=== PATIENT | female | born 1950 | race Caucasian/White ===

== ENCOUNTER → 2016-10-27 | Outpatient (CLI) | payer MEDICARE, OTHER ==
[2016-05-07 15:16] VITALS: BP 102/69
[~2016-10-27] MED LIST: ASPI-630 PO; ATORVASTATIN CA80 MG PO; FAMO-63 PO; FURO-69 PO; FURO40TA4 PO; LEVO500T59 PO; LEVO50TA5 PO; LISI-338 PO; LOSA25TA4 PO; METH4TAB2 PO; METO25TA4 PO; POTA10CA PO; POTA20TA4 PO; [UNRECOGNIZED DRUG - OTHER]
--- NOTE | 2016-10-27 10:01 | RAD ---
DATE: 10/27/16 EXAM: MAMMO JAVAD SCREENING BILATERAL HISTORY: Routine screening COMPARISON: 10/28/15 This study was interpreted with the benefit of Computerized Aided Detection (CAD). TECHNIQUE: Routine 2-D and 3-D screening mammograms of both breasts are obtained. FINDINGS: Breast Density: FATTY The breast parenchyma is primarily fatty replaced. Breast parenchyma level density A.. No suspicious clustered microcalcifications or architectural distortion seen. Stable benign-appearing calcifications are seen in both breasts. Skin and nipples are intact IMPRESSION: Benign findings BI-RADS CATEGORY: 2 BENIGN FINDING(S) RECOMMENDED FOLLOW-UP: 12M 12 MONTH FOLLOW-UP PQRS compliance statement: Patient information was entered into a reminder system with a target due date for the next mammogram. Mammography is a sensitive method for finding small breast cancers, but it does not detect them all and is not a substitute for careful clinical examination. A negative mammogram does not negate a clinically suspicious finding and should not result in delay in biopsying a clinically suspicious abnormality. "Our facility is accredited by the [employer] Mammography Program."
== END | disposition home or self-care (01) ==
LOC: MAMMO 08:33
PROVIDERS: ATTEND Family Medicine
DX: Z12.31 Encounter for screening mammogram for malignant neoplasm of breast (principal)
CPT/HCPCS: 77063; G0202; 77067

== ENCOUNTER → 2016-12-11 | Outpatient (CLI) | payer MEDICARE, OTHER ==
[2016-05-07 15:16] VITALS: BP 102/69
[2016-12-11 09:48] LABS: ALBUMIN 3.3 g/dL (3.4-5.0); ALBUMIN/GLOBULIN RATIO 0.8 (1.0-1.7); CALCIUM 9.1 mg/dL (8.5-10.1); CREATININE 0.8 mg/dL (0.6-1.0); GFR 71.8; POTASSIUM 4.5 mmol/L (3.5-5.1); TOTAL BILIRUBIN 0.4 mg/dL (0.2-1.0); TOTAL PROTEIN 7.3 g/dL (6.4-8.2)
== END | disposition home or self-care (01) ==
LOC: LAB 08:44
PROVIDERS: ATTEND Nurse Practitioner
DX: E78.5 Hyperlipidemia, unspecified (principal)
CPT/HCPCS: 36415; 80053; 80061

== ENCOUNTER → 2017-01-20 | Outpatient (CLI) | payer MEDICARE, OTHER ==
[2016-05-07 15:16] VITALS: BP 102/69
[2017-01-20 14:12] LABS: BASO % 1 % (0-3); EOS # 0.1 x10^3/uL (0.0-0.7); EOS % 1 % (0-3); HEMATOCRIT 35.2 % (36.0-47.0); HEMOGLOBIN 11.4 g/dL (12.0-15.5); LYMPH # 1.3 x10^3/uL (1.0-4.8); LYMPH % 22 % (24-48); MEAN CORPUSCULAR HEMOGLOBIN 26 pg (25-35); MEAN CORPUSCULAR HGB CONC 32 g/dL (31-37); MEAN CORPUSCULAR VOLUME 80 fL (79-100); MONO # 0.6 x10^3/uL (0.0-1.1); MONO % 10 % (0-9); NEUT # 3.9 x10^3uL (1.8-7.7); NEUT % 66 % (31-73); PLATELET COUNT 268 x10^3/uL (140-400); RED BLOOD COUNT 4.42 x10^6/uL (3.50-5.40); RED CELL DISTRIBUTION WIDTH 17.3 % (11.5-14.5); WHITE BLOOD COUNT 5.8 x10^3/uL (4.0-11.0)
[2017-01-20 14:14] LABS: CALCIUM 9.2 mg/dL (8.5-10.1); CREATININE 0.9 mg/dL (0.6-1.0); GFR 62.6; POTASSIUM 3.9 mmol/L (3.5-5.1)
== END | disposition home or self-care (01) ==
LOC: LAB 13:39
PROVIDERS: ATTEND Nurse Practitioner
DX: Z01.812 Encounter for preprocedural laboratory examination (principal); I34.0 Nonrheumatic mitral (valve) insufficiency
CPT/HCPCS: 36415; 80048; 83735; 85027; 85610; 85730

== ENCOUNTER 2017-07-17 17:15 | Emergency (ER) | payer MEDICARE, OTHER ==
[~2017-07-17] VITALS: Ht 154.9 cm; Wt 84.4 kg
[2017-07-17 17:25] VITALS: BP 139/80
--- NOTE | 2017-07-17 17:38 | ED.ADGEN ---
Past History Past Medical History: Hypertension, Hyperthyroid Past Surgical History: Hysterectomy, Other Alcohol Use: None Drug Use: None Adult General Chief Complaint Chief Complaint " I just woke up with this purple bruise and tendon cyst on my Rt. hand... it is sore.. my mother used to get them.. and had to have surgery.." HPI HPI Patient is a 66 year old female who presents with above hx and complaints right hand muscles and endocrine systems. Distal neurovascular intact. No history of trauma. Patient does take Coumadin for her mechanical valve. Goal for previous INRs have been between 2.5 and 3. Review of Systems Review of Systems Constitutional: Denies fever or chills [] Eyes: Denies change in visual acuity, redness, or eye pain [] HENT: Denies nasal congestion or sore throat [] Respiratory: Denies cough or shortness of breath [] Cardiovascular: No additional information not addressed in HPI [] GI: Denies abdominal pain, nausea, vomiting, bloody stools or diarrhea [] : Denies dysuria or hematuria [] Musculoskeletal: Denies back pain or joint pain []complaints are right hand ecchymosis and pain Integument: Denies rash or skin lesions [] Neurologic: Denies headache, focal weakness or sensory changes [] Endocrine: Denies polyuria or polydipsia [] All other systems were reviewed and found to be within normal limits, except as documented in this note. Family History Family History Noncontributory- mother had hx of ganglion tendon cysts. Current Medications Current Medications See nursing for home meds Allergies Allergies Allergies Coded Allergies Type Severity Reaction Last Updated Verified fish oil Allergy Intermediate 05/06/16 Yes lisinopril Allergy Intermediate 05/06/16 Yes pravastatin Allergy Intermediate 05/06/16 Yes Physical Exam Physical Exam Constitutional: Well developed, well nourished, no acute distress, non-toxic appearance. [] HENT: Normocephalic, atraumatic, bilateral external ears normal, oropharynx moist, no oral exudates, nose normal. [] Eyes: PERRLA, EOMI, conjunctiva normal, no discharge. [] Neck: Normal range of motion, no tenderness, supple, no stridor. [] Cardiovascular:Heart rate regular rhythm, click Lungs & Thorax: Bilateral breath sounds clear to auscultation []midline scar. Abdomen: Bowel sounds normal, soft, no tenderness, no masses, no pulsatile masses. Scar Skin: Warm, dry, no erythema, no rash. [] Back: No tenderness, no CVA tenderness. [] Extremities: No tenderness, no cyanosis, no clubbing, ROM intact, no edema. [] Right hand edema and ecchymosis. Findings of a ganglion cyst dorsal. Neurologic: Alert and oriented X 3, normal motor function, normal sensory function, no focal deficits noted. [] Psychologic: Affect normal, judgement normal, mood normal. [] Current Patient Data Vital Signs Vital Signs Date Time Temp Pulse Resp B/P (MAP) Pulse Ox O2 Delivery O2 Flow Rate FiO2 07/17/17 17:25 98.0 86 16 95 Room Air Lab Results Laboratory Tests Test 07/17/17 17:35 Prothrombin Time 35.7 SEC (9.4-11.4) H Prothrombin Time INR 3.6 (0.9-1.1) H PTT 39 SEC (23-33) H EKG EKG [] Radiology/Procedures Radiology/Procedures [] Course & Med Decision Making Course & Med Decision Making Pertinent Labs and Imaging studies reviewed. (See chart for details) Patient to hold Coumadin tonight. Take half a dose tomorrow. Recheck INR Wednesday. Ice, elevation, rest, consider follow-up for gaining removal. [] Final Impression Final Impression 1. Ecchymosis- 2. Tendon Cyst[]-Ganglion 3. Elevated INR Problems: Dragon Disclaimer Dragon Disclaimer This electronic medical record was generated, in whole or in part, using a voice recognition dictation system. LUCIANO ZHENG MD Jul 17, 2017 17:38
--- NOTE | 2017-07-18 09:09 | RAD ---
Indication: Bruising, no known injury. Technique: 3 views of the right hand are submitted for review. No comparison is available. Findings: No fracture or dislocation is apparent. There is joint space narrowing and spurring noted in the interphalangeal joints and first carpometacarpal joint. There is also degenerative change at the first metacarpal phalangeal joint. There is no subluxation. There is no soft tissue swelling. Impression: Degenerative changes in the right hand.
== END 2017-07-17 19:15 | disposition home or self-care (01) ==
LOC: ER 17:15
DX: S60.221A Contusion of right hand, initial encounter (principal); M67.441 Ganglion, right hand; R79.1 Abnormal coagulation profile; E05.90 Thyrotoxicosis, unspecified without thyrotoxic crisis or storm; I10 Essential (primary) hypertension; Z79.01 Long term (current) use of anticoagulants; Z88.8 Allergy status to other drugs, medicaments and biological substances; X58.XXXA Exposure to other specified factors, initial encounter; Y93.89 Activity, other specified; Y99.8 Other external cause status; Y92.89 Other specified places as the place of occurrence of the external cause
CPT/HCPCS: 36415; 73130; 85610; 85730; 99285

== ENCOUNTER 2018-03-30 08:55 | Inpatient (IN) | payer MEDICARE, OTHER ==
[2018-03-30] VITALS (9 sets, daily range): BP systolic 132–145; BP diastolic 77–84
[~2018-03-30] VITALS: Ht 154.9 cm; Wt 84.6 kg
[~2018-03-30 08:55] MED LIST changes: -LOSA25TA4 PO; +LOSA25TA5 PO
[2018-03-30 10:11] LABS: BASO # 0.1 x10^3/uL (0.0-0.2); BASO % 1 % (0-3); EOS # 0.2 x10^3/uL (0.0-0.7); EOS % 3 % (0-3); HEMATOCRIT 24.9 % (36.0-47.0); HEMOGLOBIN 7.9 g/dL (12.0-15.5); LYMPH # 1.3 x10^3/uL (1.0-4.8); LYMPH % 24 % (24-48); MEAN CORPUSCULAR HEMOGLOBIN 23 pg (25-35); MEAN CORPUSCULAR HGB CONC 32 g/dL (31-37); MEAN CORPUSCULAR VOLUME 72 fL (79-100); MONO # 0.5 x10^3/uL (0.0-1.1); MONO % 10 % (0-9); NEUT # 3.4 x10^3uL (1.8-7.7); NEUT % 63 % (31-73); PLATELET COUNT 309 x10^3/uL (140-400); RED BLOOD COUNT 3.44 x10^6/uL (3.50-5.40); RED CELL DISTRIBUTION WIDTH 18.5 % (11.5-14.5); WHITE BLOOD COUNT 5.5 x10^3/uL (4.0-11.0)
[2018-03-30 10:15] LABS: ALBUMIN 3.3 g/dL (3.4-5.0); ALBUMIN/GLOBULIN RATIO 0.8 (1.0-1.7); CALCIUM 9.5 mg/dL (8.5-10.1); CREATININE 1.1 mg/dL (0.6-1.0); GFR 49.5; POTASSIUM 4.6 mmol/L (3.5-5.1); TOTAL BILIRUBIN 0.2 mg/dL (0.2-1.0); TOTAL PROTEIN 7.3 g/dL (6.4-8.2)
[2018-03-30] MEDS ORDERED: IOHEXOL 240 MG/ML 50ML VIAL. ONE (10:30)
[2018-03-30] MEDS ORDERED: IOHEXOL 300 MG/ML 75 ML VIAL. IV ONE (10:30)
[2018-03-30] MEDS ORDERED: METO50TA29 PO (10:34)
[2018-03-30] MEDS ORDERED: WARF2TAB96 PO (10:34)
[2018-03-30] MEDS ORDERED: CALC-496 PO (10:34)
[2018-03-30] MEDS ORDERED: LOSA50TA7 PO (10:34)
[2018-03-30] MEDS ORDERED: SPIR25TA5 PO (10:34)
[2018-03-30] MEDS ORDERED: WARF-31 PO (10:34)
[2018-03-30 11:13] LABS: BILIRUBIN,URINE NEG (NEG); CLARITY,URINE CLEAR; COLOR,URINE STRAW; GLUCOSE,URINE NEG (NEG)
[2018-03-30 11:14] LABS: BACTERIA,URINE 0 /HPF (0-FEW); NITRITE,URINE NEG (NEG); RBC,URINE 0 /HPF (0-2); SQUAMOUS EPITHELIAL CELL,UR OCC /LPF; UROBILINOGEN,URINE 0.2 mg/dL (0.2 mg/dL); WBC,URINE 0 /HPF (0-4)
[2018-03-30] MEDS ORDERED: PANTOPRAZOLE IV 80 MG in IV NORMAL SALINE 100ML 100 ML IV ONE (11:30)
[2018-03-30] MEDS: IV NORMAL SALINE 1,000ML 1,000 ML IV SCH (12:20)
[2018-03-30] MEDS: SUCRALFATE 1 GM/10 ML ORAL.SUSP. PEG SCH ×3 (12:21→21:03)
--- NOTE | 2018-03-30 12:33 | RAD ---
CT of the abdomen and pelvis with contrast, 03/30/2018: HISTORY: Abdominal pain, possible GI tract bleed Multidetector CT imaging was performed following oral and IV administration of contrast. There is a moderate sized hiatal hernia. There is mild streaky atelectasis or scarring in the lung bases. No pleural fluid is evident. No hepatic abnormality is seen. The gallbladder is unremarkable. The pancreas shows no abnormality. The spleen is of normal size. There is minimal bilateral renal cortical scarring. The kidneys show no evidence of obstruction or mass. Moderate aortoiliac calcific plaquing is present. There are surgical clips at both groin levels. No abdominal or pelvic adenopathy is seen. The uterus is surgically absent. Several colonic diverticula are evident in the sigmoid region. No paracolonic inflammatory process is seen. The bowel loops are not dilated. The appendix is visualized and shows no abnormality. No free air or free fluid is evident in the abdomen or pelvis. There is a small fat-containing left inguinal hernia. There is a tiny umbilical hernia containing only fat. IMPRESSION: 1. Sigmoid diverticulosis. 2. Moderate-sized hiatal hernia. 3. Small fat-containing left inguinal hernia. 4. No acute abdominal or pelvic abnormality is detected. PQRS Compliance Statement: One or more of the following individualized dose reduction techniques were utilized for this examination: 1. Automated exposure control 2. Adjustment of the mA and/or kV according to patient size 3. Use of iterative reconstruction technique Electronically signed by: Carlos Keen MD (03/30/2018 12:31 PM) [facility]
[2018-03-31] MEDS: IV NORMAL SALINE 1,000ML 1,000 ML IV SCH ×2 (00:58→13:01)
[2018-03-31] MEDS: LEVOTHYROXINE 50 MCG TABLET PO SCH (05:24)
[2018-03-31 05:43] VITALS: BP 125/69
[2018-03-31 06:21] LABS: BASO % 1 % (0-3); EOS # 0.1 x10^3/uL (0.0-0.7); EOS % 3 % (0-3); HEMATOCRIT 27.7 % (36.0-47.0); LYMPH # 1.2 x10^3/uL (1.0-4.8); LYMPH % 21 % (24-48); MEAN CORPUSCULAR HEMOGLOBIN 25 pg (25-35); MEAN CORPUSCULAR HGB CONC 32 g/dL (31-37); MEAN CORPUSCULAR VOLUME 76 fL (79-100); MONO # 0.5 x10^3/uL (0.0-1.1); MONO % 9 % (0-9); NEUT % 68 % (31-73); PLATELET COUNT 279 x10^3/uL (140-400); RED BLOOD COUNT 3.65 x10^6/uL (3.50-5.40); RED CELL DISTRIBUTION WIDTH 20.3 % (11.5-14.5); WHITE BLOOD COUNT 5.9 x10^3/uL (4.0-11.0)
[2018-03-31 06:28] LABS: CALCIUM 8.8 mg/dL (8.5-10.1); CREATININE 1.1 mg/dL (0.6-1.0); GFR 49.5; POTASSIUM 4.3 mmol/L (3.5-5.1)
[2018-03-31 07:45] LABS: ANISOCYTOSIS MOD; HYPOCHROMIA SLIGHT; MICROCYTOSIS PRESENT; PLT ESTIMATE ADEQUATE (ADEQUATE); TARGET CELLS PRESENT
[2018-03-31] MEDS: SUCRALFATE 1 GM/10 ML ORAL.SUSP. PEG SCH ×4 (08:22→21:18)
[2018-03-31] MEDS: FUROSEMIDE 20 MG TABLET PO SCH (09:18)
[2018-03-31] MEDS: LOSARTAN 50 MG TABLET. PO SCH (09:18)
[2018-03-31] MEDS: SPIRONOLACTONE 25 MG TABLET PO SCH (09:18)
[2018-03-31] MEDS: METOPROLOL SUCC 24HR ER 50 MG TAB.ER.24H. PO SCH (09:18)
[2018-03-31] MEDS: FAMOTIDINE 20 MG TABLET PO SCH (09:18)
[2018-03-31 10:06] LABS: FECAL OB PT NEGATIVE (NEG)
[2018-03-31] MEDS ORDERED: IRON SUCROSE COMPLEX 200 MG in IV NORMAL SALINE 100ML 100 ML IV ONE (10:30)
[2018-03-31] MEDS ORDERED: ASPIRIN 81 MG TAB.CHEW PO ONE (10:30)
[2018-03-31 11:12] VITALS: BP 111/67
--- NOTE | 2018-03-31 12:57 | EKG ---
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
[2018-03-31] MEDS: miSOPROStol 100 MCG TABLET PO SCH ×3 (13:00→21:18)
[2018-03-31 13:03] VITALS: BP 105/68
[2018-03-31 15:00] VITALS: BP 144/77
[2018-03-31 20:15] VITALS: BP 130/71
[2018-03-31 23:12] VITALS: BP 148/84
--- NOTE | 2018-04-01 00:09 | PN ---
DATE: SUBJECTIVE: A 67-year-old female in with iron deficiency anemia. The patient's stools have been Hemoccult negative. Her iron level was down in the 13 range and lower as a result of this, the patient was given an infusion of Venofer and we will continue to monitor her and see how well she does with that in the morning for possible discharge. PHYSICAL EXAMINATION: VITAL SIGNS: Blood pressure 105/60, respiration 18, pulse 74, and afebrile. GENERAL: The patient is alert and oriented. LUNGS: Clear. CARDIOVASCULAR: Regular sinus rhythm. ABDOMEN: Soft, nontender, no rebound or guarding. Positive bowel sounds, no hepatosplenomegaly noted. EXTREMITIES: No clubbing, cyanosis or edema. NEUROLOGIC: Intact. IMPRESSION: Iron deficiency anemia, history of valve replacement and symptomatic with decrease in her hemoglobin. DURGA LANCASTER MD DR: BLAKE/drake JOB#: [id number] / [id number]
[2018-04-01] MEDS: IV NORMAL SALINE 1,000ML 1,000 ML IV SCH (03:48)
[2018-04-01] MEDS: LEVOTHYROXINE 50 MCG TABLET PO SCH (05:23)
[2018-04-01 05:32] VITALS: BP 153/77
[2018-04-01 06:02] LABS: BASO % 1 % (0-3); EOS # 0.2 x10^3/uL (0.0-0.7); EOS % 4 % (0-3); HEMATOCRIT 26.2 % (36.0-47.0); HEMOGLOBIN 8.4 g/dL (12.0-15.5); LYMPH # 1.2 x10^3/uL (1.0-4.8); LYMPH % 22 % (24-48); MEAN CORPUSCULAR HEMOGLOBIN 24 pg (25-35); MEAN CORPUSCULAR HGB CONC 32 g/dL (31-37); MEAN CORPUSCULAR VOLUME 76 fL (79-100); MONO # 0.5 x10^3/uL (0.0-1.1); MONO % 8 % (0-9); NEUT # 3.7 x10^3uL (1.8-7.7); NEUT % 66 % (31-73); PLATELET COUNT 271 x10^3/uL (140-400); RED BLOOD COUNT 3.47 x10^6/uL (3.50-5.40); RED CELL DISTRIBUTION WIDTH 20.3 % (11.5-14.5); WHITE BLOOD COUNT 5.7 x10^3/uL (4.0-11.0)
[2018-04-01] MEDS: SUCRALFATE 1 GM/10 ML ORAL.SUSP. PEG SCH (07:40)
[2018-04-01] MEDS: METOPROLOL SUCC 24HR ER 50 MG TAB.ER.24H. PO SCH (08:32)
[2018-04-01] MEDS: FAMOTIDINE 20 MG TABLET PO SCH (08:32)
[2018-04-01] MEDS: FUROSEMIDE 20 MG TABLET PO SCH (08:32)
[2018-04-01] MEDS: SPIRONOLACTONE 25 MG TABLET PO SCH (08:32)
[2018-04-01 08:33] VITALS: BP 153/77
[2018-04-01] MEDS: miSOPROStol 100 MCG TABLET PO SCH (08:33)
[2018-04-01] MEDS: LOSARTAN 50 MG TABLET. PO SCH (08:33)
[2018-04-01] MEDS ORDERED: MISO100T PO (09:35)
--- NOTE | 2018-04-01 12:19 | DS ---
DATE OF DISCHARGE: 04/01/2018 HOSPITAL COURSE: The patient came in feeling weak and tired. The patient's hemoglobin had dropped from 12 down to the 7.9 range as a result of her symptomatic problem. The patient was given a unit of packed RBCs. Iron was low. She was given infusion of iron, sucrose preparation, Venofer as well as Cytotec, although her stools were Hemoccult negative. She will be scheduled for GI consult as soon as possible. Otherwise, the patient made good progress. Her hemoglobin remained in the 8.6 range, stable. Vital signs remain stable at 150/70, respiratory rate 20, pulse 70 and afebrile. Chemistries are basically normal. She will follow up accordingly and make further evaluation. IMPRESSION: Anemia, iron deficiency, symptomatic; history of heart valve placement; chronic kidney disease stage 3; [id number]-[id number]-ycrikocv protein malnutrition. DISCHARGE INSTRUCTIONS: The patient will be monitored carefully as an outpatient and make further evaluation. Repeat CBC and iron levels on her. DURGA LANCASTER MD DR: BLAKE/drake JOB#: [id number] / [id number]
== END 2018-04-01 10:55 | disposition home or self-care (01) | DRG 812 ==
LOC: 1 SOUTH 08:59
PROVIDERS: ADMIT Family Medicine; ATTEND Family Medicine
PROC: 30233N1 Transfusion of Nonautologous Red Blood Cells into Peripheral Vein, Percutaneous Approach (ICD-10-PCS; principal; 2018-03-30)
DX: D50.9 Iron deficiency anemia, unspecified (principal); K92.2 Gastrointestinal hemorrhage, unspecified; I25.810 Atherosclerosis of coronary artery bypass graft(s) without angina pectoris; E44.0 Moderate protein-calorie malnutrition; N18.3 Chronic kidney disease, stage 3 (moderate); D50.0 Iron deficiency anemia secondary to blood loss (chronic); E03.9 Hypothyroidism, unspecified; Z95.2 Presence of prosthetic heart valve; Z79.899 Other long term (current) drug therapy; Z88.8 Allergy status to other drugs, medicaments and biological substances; Z91.013 Allergy to seafood; Z68.35 Body mass index [BMI] 35.0-35.9, adult
CPT/HCPCS: 36415; 74177; 80048; 80053; 81001; 82274; 82607; 82728; 83540; 83550; 85025; 86850; 86900; 86901; 86920; 87086; 93005; C9113; J1756; P9016; Q9967; J7030

== ENCOUNTER → 2018-05-17 | Outpatient (CLI) | payer MEDICARE, OTHER ==
[~2018-05-17] MED LIST changes: +CALC-496 PO; +LOSA50TA7 PO; +METO50TA29 PO; +MISO100T PO; +SPIR25TA5 PO; +WARF-31 PO; +WARF2TAB96 PO
[2018-05-17 10:53] LABS: BASO % 1 % (0-3); EOS # 0.2 x10^3/uL (0.0-0.7); EOS % 2 % (0-3); HEMATOCRIT 38.1 % (36.0-47.0); HEMOGLOBIN 12.3 g/dL (12.0-15.5); LYMPH # 1.1 x10^3/uL (1.0-4.8); LYMPH % 13 % (24-48); MEAN CORPUSCULAR HEMOGLOBIN 27 pg (25-35); MEAN CORPUSCULAR HGB CONC 32 g/dL (31-37); MEAN CORPUSCULAR VOLUME 82 fL (79-100); MONO # 0.5 x10^3/uL (0.0-1.1); MONO % 7 % (0-9); NEUT # 6.3 x10^3uL (1.8-7.7); NEUT % 78 % (31-73); PLATELET COUNT 327 x10^3/uL (140-400); RED BLOOD COUNT 4.63 x10^6/uL (3.50-5.40); RED CELL DISTRIBUTION WIDTH 27.8 % (11.5-14.5); WHITE BLOOD COUNT 8.1 x10^3/uL (4.0-11.0)
[2018-05-17 11:37] LABS: ANISOCYTOSIS MOD; HYPOCHROMIA SLIGHT; MICROCYTOSIS SLIGHT; OVALOCYTES OCC; PLT ESTIMATE ADEQUATE (ADEQUATE); POLYCHROMASIA SLIGHT; SPHEROCYTES OCC; TARGET CELLS OCC; TEAR DROP CELLS OCC
== END | disposition home or self-care (01) ==
LOC: LAB 09:51
PROVIDERS: ATTEND Nurse Practitioner
DX: I25.10 Atherosclerotic heart disease of native coronary artery without angina pectoris (principal)
CPT/HCPCS: 36415; 85025; 85610

== ENCOUNTER → 2018-10-21 | Outpatient (CLI) | payer MEDICARE ==
[~2018-10-21] MED LIST changes: +LOSA25TA11 PO; -LOSA25TA5 PO; -LOSA50TA7 PO; +LOSA50TA86 PO
[2018-10-21 09:26] LABS: ALBUMIN 3.1 g/dL (3.4-5.0); ALBUMIN/GLOBULIN RATIO 0.7 (1.0-1.7); CALCIUM 8.9 mg/dL (8.5-10.1); GFR 55.1; POTASSIUM 4.2 mmol/L (3.5-5.1); TOTAL BILIRUBIN 0.3 mg/dL (0.2-1.0); TOTAL PROTEIN 7.3 g/dL (6.4-8.2)
== END | disposition home or self-care (01) ==
LOC: LAB 08:45
PROVIDERS: ATTEND Nurse Practitioner
DX: E78.5 Hyperlipidemia, unspecified (principal)
CPT/HCPCS: 36415; 80053; 80061

== ENCOUNTER 2019-03-20 13:54 | Observation (INO) | payer MEDICARE ==
[~2019-03-20] VITALS: Ht 154.9 cm; Wt 84.1 kg
[2019-03-20 14:40] LABS: BASO # 0.1 x10^3/uL (0.0-0.2); BASO % 1 % (0-3); EOS # 0.2 x10^3/uL (0.0-0.7); EOS % 3 % (0-3); HEMATOCRIT 39.8 % (36.0-47.0); LYMPH # 1.5 x10^3/uL (1.0-4.8); LYMPH % 23 % (24-48); MEAN CORPUSCULAR HEMOGLOBIN 29 pg (25-35); MEAN CORPUSCULAR HGB CONC 33 g/dL (31-37); MEAN CORPUSCULAR VOLUME 88 fL (79-100); MONO # 0.7 x10^3/uL (0.0-1.1); MONO % 11 % (0-9); NEUT # 4.1 x10^3uL (1.8-7.7); NEUT % 62 % (31-73); PLATELET COUNT 223 x10^3/uL (140-400); RED BLOOD COUNT 4.52 x10^6/uL (3.50-5.40); RED CELL DISTRIBUTION WIDTH 16.7 % (11.5-14.5); WHITE BLOOD COUNT 6.6 x10^3/uL (4.0-11.0)
--- NOTE | 2019-03-20 14:48 | PHYS DOC ---
Past History Past Medical History: Heart Disease, Hypertension, Other Past Surgical History: Coronary Bypass Surgery, Hysterectomy, Pacemaker, Other Additional Past Surgical Histo: valve replacement, cardiac tumor resection Smoking: Non-smoker Alcohol Use: None Drug Use: None Adult General Chief Complaint Chief Complaint: HEADACHE HPI HPI Patient is a 68-year-old female presents with an episode where she felt like she was going to pass out and had some numbness in her lips 3 days ago. She sat down and symptoms improved within 5 minutes. There was no focal weakness to her arms or legs. Since that time she has been having a diffuse headache across her entire head. No change in vision. Not worst headache of life. Tylenol removed her headache, she took only 1 dose of this. No loss of bowel or bladder control. No fevers. No neck pain or stiffness. Patient is on Coumadin due to cardiac history including a valve replacement. There has been no nausea or vomiting. No change in behavior according to her .[] Review of Systems Review of Systems Constitutional: Denies fever or chills [] Eyes: Denies change in visual acuity, redness, or eye pain [] HENT: Denies nasal congestion or sore throat [] Respiratory: Denies cough or shortness of breath [] Cardiovascular: No chest pain or palpitations[] GI: Denies abdominal pain, nausea, vomiting, bloody stools or diarrhea [] : Denies dysuria or hematuria [] Musculoskeletal: Denies back pain or joint pain [] Integument: Denies rash or skin lesions [] Neurologic: Denies focal weakness or sensory changes, see history of present illness [] Endocrine: Denies polyuria or polydipsia [] All other systems were reviewed and found to be within normal limits, except as documented in this note. Allergies Allergies Allergies Coded Allergies Type Severity Reaction Last Updated Verified fish oil Allergy Intermediate 05/06/16 Yes lisinopril Allergy Intermediate 05/06/16 Yes pravastatin Allergy Intermediate 05/06/16 Yes aspirin Allergy Unknown 03/20/19 Yes Physical Exam Physical Exam Constitutional: Well developed, well nourished, no acute distress, non-toxic appearance. [] HENT: Normocephalic, atraumatic, bilateral external ears normal, oropharynx moist, no oral exudates, nose normal. [] Eyes: PERRLA, EOMI, conjunctiva normal, no discharge. [] Neck: Normal range of motion, no tenderness, supple, no stridor. [] Cardiovascular:Heart rate regular rhythm, no murmur [] Lungs & Thorax: Bilateral breath sounds clear to auscultation [] Abdomen: Bowel sounds normal, soft, no tenderness, no masses, no pulsatile fabián s. [] Skin: Warm, dry, no erythema, no rash. [] Back: No tenderness, no CVA tenderness. [] Extremities: No tenderness, no cyanosis, no clubbing, ROM intact, no edema. [] Neurologic: Alert and oriented X 3, normal motor function, normal sensory function, no focal deficits noted. Patient has an NIH SS of 0 [] Psychologic: Affect normal, judgement normal, mood normal. [] Current Patient Data Vital Signs Vital Signs Date Time Temp Pulse Resp B/P (MAP) Pulse Ox O2 Delivery O2 Flow Rate FiO2 03/20/19 14:00 98.2 78 16 97 Room Air Lab Results Laboratory Tests Test 03/20/19 14:06 White Blood Count 6.6 x10^3/uL (4.0-11.0) Red Blood Count 4.52 x10^6/uL (3.50-5.40) Hemoglobin 13.0 g/dL (12.0-15.5) Hematocrit 39.8 % (36.0-47.0) Mean Corpuscular Volume 88 fL (79-100) Mean Corpuscular Hemoglobin 29 pg (25-35) Mean Corpuscular Hemoglobin Concent 33 g/dL (31-37) Red Cell Distribution Width 16.7 % (11.5-14.5) H Platelet Count 223 x10^3/uL (140-400) Neutrophils (%) (Auto) 62 % (31-73) Lymphocytes (%) (Auto) 23 % (24-48) L Monocytes (%) (Auto) 11 % (0-9) H Eosinophils (%) (Auto) 3 % (0-3) Basophils (%) (Auto) 1 % (0-3) Neutrophils # (Auto) 4.1 x10^3uL (1.8-7.7) Lymphocytes # (Auto) 1.5 x10^3/uL (1.0-4.8) Monocytes # (Auto) 0.7 x10^3/uL (0.0-1.1) Eosinophils # (Auto) 0.2 x10^3/uL (0.0-0.7) Basophils # (Auto) 0.1 x10^3/uL (0.0-0.2) EKG EKG EKG shows a paced rhythm. No ST elevation. There is a right axis deviation at - 128, QTC is 520 ms, interpreted by me at 1413.[] Radiology/Procedures Radiology/Procedures PROCEDURE: PORTABLE CHEST 1V EXAM: Chest, single view. HISTORY: Near syncope. COMPARISON: CT dated 05/06/2016. FINDINGS: A frontal view of the chest is obtained. There is no infiltrate, pleural effusion or pneumothorax. There is a mildly enlarged cardiac silhouette. There is evidence of prior median sternotomy, coronary artery bypass grafting and cardiac valve replacement. There is a cardiac pacemaker defibrillator in expected position. There is a moderate hiatal hernia with suspected infrahilar atelectasis. IMPRESSION: 1. No acute pulmonary finding. 2. Stable cardiomegaly and postoperative changes. 3. Moderate hiatal hernia with suspected infrahilar atelectasis. PROCEDURE: CT HEAD WO CONTRAST CT HEAD INDICATION: Headache COMPARISON: None Available. Exposure: One or more of the following individualized dose reduction techniques were utilized for this examination: 1. Automated exposure control 2. Adjustment of the mA and/or kV according to patient size 3. Use of iterative reconstruction technique TECHNIQUE: 5 mm contiguous axial images were obtained from the skull base to the vertex in both bone and soft tissue algorithm. FINDINGS: There is a tiny punctate 1 mm hyperdensity best visualized on series 2 image 15 just adjacent to the anterior falx likely tiny calcification and less likely bleed. No mass effect or midline shift. Ventricular size is appropriate. Basal cisterns are patent. No fractures identified.Gallego-white differentiation is preserved.Globes and orbits are within normal limits. Paranasal sinuses and mastoid air cells are clear. IMPRESSION: Tiny punctate 1 mm hyperdensity best visualized on series 2 image 15 just adjacent to the anterior falx likely tiny calcification and less likely bleed. Close interval follow-up examination can be considered. [] Course & Med Decision Making Course & Med Decision Making Pertinent Labs and Imaging studies reviewed. (See chart for details) ED course: Patient arrived, was placed in bed, and tolerated exam well. After the return of lab and imaging findings, these were discussed with the patient and family voiced understanding. Consultation was made with her primary care physician who will be admitting her. Patient was admitted in improved condition with all questions answered. Medical decision makin-year-old female with a near syncopal event with an extensive cardiac history. There is no evidence of an acute coronary syndrome. The admitted for further evaluation and cardiology consultation. Additionally there is a 1 mm region noted on the CT that make, most likely, be a calcification however bleed is not excluded. There is no evidence of an acute stroke syndrome. Given that her INR is 3.1, reluctant to perform an LP at this time to evaluate further for a bleed. Do not see an urgent indication to reverse her anticoagulation at this time. She will be followed for this while admitted.[] Dragon Disclaimer Dragon Disclaimer This electronic medical record was generated, in whole or in part, using a voice recognition dictation system. Departure Departure: Impression: Primary Impression: Near syncope Additional Impression: Abnormal head CT Disposition: ADMITTED INPATIENT Admitting Physician: Durga Lancaster Condition: IMPROVED Referrals: DURGA LANCASTER MD (PCP) Problem Qualifiers FRNAKADRIANE KAUR Mar 20, 2019 14:48
[2019-03-20 14:57] LABS: ALBUMIN 3.5 g/dL (3.4-5.0); ALBUMIN/GLOBULIN RATIO 0.8 (1.0-1.7); CALCIUM 9.1 mg/dL (8.5-10.1); CREATININE 1.1 mg/dL (0.6-1.0); GFR 49.4; MAGNESIUM 2.1 mg/dL (1.8-2.4); POTASSIUM 3.9 mmol/L (3.5-5.1); TOTAL BILIRUBIN 0.2 mg/dL (0.2-1.0); TOTAL PROTEIN 7.7 g/dL (6.4-8.2)
--- NOTE | 2019-03-20 15:02 | RAD ---
CT HEAD INDICATION: Headache COMPARISON: None Available. Exposure: One or more of the following individualized dose reduction techniques were utilized for this examination: 1. Automated exposure control 2. Adjustment of the mA and/or kV according to patient size 3. Use of iterative reconstruction technique TECHNIQUE: 5 mm contiguous axial images were obtained from the skull base to the vertex in both bone and soft tissue algorithm. FINDINGS: There is a tiny punctate 1 mm hyperdensity best visualized on series 2 image 15 just adjacent to the anterior falx likely tiny calcification and less likely bleed. No mass effect or midline shift. Ventricular size is appropriate. Basal cisterns are patent. No fractures identified.Gallego-white differentiation is preserved.Globes and orbits are within normal limits. Paranasal sinuses and mastoid air cells are clear. IMPRESSION: Tiny punctate 1 mm hyperdensity best visualized on series 2 image 15 just adjacent to the anterior falx likely tiny calcification and less likely bleed. Close interval follow-up examination can be considered. Electronically signed by: Roldan Garcia MD (03/20/2019 3:00 PM) [email or web address]
--- NOTE | 2019-03-20 15:03 | RAD ---
EXAM: Chest, single view. HISTORY: Near syncope. COMPARISON: CT dated 05/06/2016. FINDINGS: A frontal view of the chest is obtained. There is no infiltrate, pleural effusion or pneumothorax. There is a mildly enlarged cardiac silhouette. There is evidence of prior median sternotomy, coronary artery bypass grafting and cardiac valve replacement. There is a cardiac pacemaker defibrillator in expected position. There is a moderate hiatal hernia with suspected infrahilar atelectasis. IMPRESSION: 1. No acute pulmonary finding. 2. Stable cardiomegaly and postoperative changes. 3. Moderate hiatal hernia with suspected infrahilar atelectasis. Electronically signed by: Nila Jackson MD (03/20/2019 3:00 PM) [facility]
[2019-03-20 15:09] LABS: BACTERIA,URINE 0 /HPF (0-FEW); BILIRUBIN,URINE NEG (NEG); CLARITY,URINE CLEAR; COLOR,URINE YELLOW; GLUCOSE,URINE NEG (NEG); NITRITE,URINE NEG (NEG); RBC,URINE 0 /HPF (0-2); UROBILINOGEN,URINE 0.2 mg/dL (0.2 mg/dL); WBC,URINE 0 /HPF (0-4)
[2019-03-20] MEDS ORDERED: ONDANSETRON PF 4 MG/2 ML VIAL. IV PRN (15:45)
[2019-03-20] MEDS ORDERED: ACETAMINOPHEN 325 MG TABLET PO PRN (15:45)
[2019-03-20 16:22] VITALS: BP 171/102
[2019-03-20] MEDS ORDERED: LOSA25TA11 PO (16:35)
[2019-03-20] MEDS ORDERED: WARF1TAB69 PO (16:38)
[2019-03-20] MEDS ORDERED: WARF-31 PO (16:38)
[2019-03-20] MEDS ORDERED: OMEP40CA45 PO (16:38)
[2019-03-20] MEDS ORDERED: amLODIPine BESYLATE 5 MG TABLET PO STA (16:38)
[2019-03-20] MEDS ORDERED: ACETAMINOPHEN 500 MG TABLET PO PRN (16:45)
--- NOTE | 2019-03-20 16:58 | EKG ---
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
--- NOTE | 2019-03-20 17:17 | PDOC2 ---
CONSULT Date of Admission DATE: 03/20/19 TIME: 17:17 Reason for Consult: Near syncope Referring Physician: Dr. Kruse Chief Complaint Headache and near-syncope Source: Chart review, Patient Problem List Problems Medical Problems: (1) Abnormal head CT Status: Acute (2) Near syncope Status: Acute History of Present Illness 68-year-old female presented stating that she had an episode where she had headache, numbness in her lips had dizziness and felt like she was going to pass out. She denied any loss of consciousness. Her symptoms resolved after she sat down within 5 minutes. She denied any similar episodes in the past. She also denied any chest pain, orthopnea/PND or palpitations. 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 Hysterectomy AICD implantation Family History Hypertension, coronary artery disease Smoke: No ALCOHOL: none Drugs: None Current Medications Current Medications Ondansetron HCl (Zofran) 4 mg PRN Q4HRS PRN IV NAUSEA/VOMITING; Start 03/20/19 at 15:45; Stop 03/21/19 at 15:44 Acetaminophen (Tylenol) 650 mg PRN Q4HRS PRN PO FEVER or pain; Start 03/20/19 at 15:45; Stop 03/20/19 at 16:52; Status DC Amlodipine Besylate (Norvasc) 5 mg 1X STAT PO Last administered on 03/20/19at 17:10; Start 03/20/19 at 16:38; Stop 03/20/19 at 16:51; Status DC Acetaminophen (Tylenol) 1,000 mg PRN Q6HRS PRN PO PAIN / TEMP Last administered on 03/20/19at 17:10; Start 03/20/19 at 16:45 Active Scripts Active Reported Warfarin Sodium 5 Mg Tablet 10 Mg PO DAILY Warfarin Sodium 1 Mg Tablet 1-3 Mg PO DAILY Omeprazole 40 Mg Capsule.dr 40 Mg PO DAILY Losartan Potassium (Losartan Potassium) 25 Mg Tablet 12.5 Mg PO DAILY Calcium 600 + Vit D3 Tablet (Calcium Carbonate/Vitamin D3) 1 Each Tablet 1 Each PO DAILY LAST DOSE GIVEN: not given NEXT DOSE DUE: at home Atorvastatin Calcium 80 Mg Tablet 80 Mg PO QHS LAST DOSE GIVEN: yesturday NEXT DOSE DUE: tonight Lasix (Furosemide) 20 Mg Tablet 20 Mg PO DAILY LAST DOSE GIVEN: TODAY NEXT DOSE DUE: TOMORROW Allergies: Coded Allergies: aspirin (Verified Allergy, Intermediate, 03/20/19) fish oil (Verified Allergy, Intermediate, 05/06/16) lisinopril (Verified Allergy, Intermediate, 05/06/16) pravastatin (Verified Allergy, Intermediate, 05/06/16) PSYCHOLOGICAL ROS: No: Hallucinations HEENT: YES: Heacaches Respiratory: No: Hemoptysis, Shortness of breath Cardiovascular: No: Chest Pain, Palpitations Gastrointestinal: No: Vomiting, Diarrhea Genitourinary: No: Henaturia Neurological: YES: Dizziness; No: Seizures Skin: No: Rash General: Alert, Oriented X3 HEENT: Atraumatic, PERRLA Lungs: Clear to auscultation Heart: Regular rate Abdomen: Soft Extremities: No edema Psych/Mental Status: Mood NL VITALS Vital Signs Date Time Temp Pulse Resp B/P (MAP) Pulse Ox O2 Delivery O2 Flow Rate FiO2 03/20/19 17:10 70 171/102 03/20/19 16:22 97.4 20 98 Room Air Labs Laboratory Tests Test 03/20/19 14:06 03/20/19 14:38 White Blood Count 6.6 x10^3/uL (4.0-11.0) Red Blood Count 4.52 x10^6/uL (3.50-5.40) Hemoglobin 13.0 g/dL (12.0-15.5) Hematocrit 39.8 % (36.0-47.0) Mean Corpuscular Volume 88 fL (79-100) Mean Corpuscular Hemoglobin 29 pg (25-35) Mean Corpuscular Hemoglobin Concent 33 g/dL (31-37) Red Cell Distribution Width 16.7 % (11.5-14.5) Platelet Count 223 x10^3/uL (140-400) Neutrophils (%) (Auto) 62 % (31-73) Lymphocytes (%) (Auto) 23 % (24-48) Monocytes (%) (Auto) 11 % (0-9) Eosinophils (%) (Auto) 3 % (0-3) Basophils (%) (Auto) 1 % (0-3) Neutrophils # (Auto) 4.1 x10^3uL (1.8-7.7) Lymphocytes # (Auto) 1.5 x10^3/uL (1.0-4.8) Monocytes # (Auto) 0.7 x10^3/uL (0.0-1.1) Eosinophils # (Auto) 0.2 x10^3/uL (0.0-0.7) Basophils # (Auto) 0.1 x10^3/uL (0.0-0.2) Prothrombin Time 32.3 SEC (9.4-11.4) Prothromb Time International Ratio 3.1 (0.9-1.1) Activated Partial Thromboplast Time 46 SEC (23-33) Sodium Level 141 mmol/L (136-145) Potassium Level 3.9 mmol/L (3.5-5.1) Chloride Level 103 mmol/L (98-107) Carbon Dioxide Level 30 mmol/L (21-32) Anion Gap 8 (6-14) Blood Urea Nitrogen 21 mg/dL (7-20) Creatinine 1.1 mg/dL (0.6-1.0) Estimated GFR (Cockcroft-Gault) 49.4 BUN/Creatinine Ratio 19 (6-20) Glucose Level 93 mg/dL (70-99) Calcium Level 9.1 mg/dL (8.5-10.1) Magnesium Level 2.1 mg/dL (1.8-2.4) Total Bilirubin 0.2 mg/dL (0.2-1.0) Aspartate Amino Transf (AST/SGOT) 37 U/L (15-37) Alanine Aminotransferase (ALT/SGPT) 31 U/L (14-59) Alkaline Phosphatase 117 U/L (46-116) Troponin I Quantitative < 0.017 ng/mL (0-0.055) WA-Asn-D-Type Natriuretic Peptide 822 pg/mL (0-124) Total Protein 7.7 g/dL (6.4-8.2) Albumin 3.5 g/dL (3.4-5.0) Albumin/Globulin Ratio 0.8 (1.0-1.7) Urine Collection Type Unknown Urine Color Yellow Urine Clarity Clear Urine pH 6.5 Urine Specific Wilmot <=1.005 Urine Protein Neg (NEG-TRACE) Urine Glucose (UA) Neg mg/dL (NEG) Urine Ketones (Stick) Neg mg/dL (NEG) Urine Blood Neg (NEG) Urine Nitrite Neg (NEG) Urine Bilirubin Neg (NEG) Urine Urobilinogen Dipstick 0.2 mg/dL (0.2 mg/dL) Urine Leukocyte Esterase Neg (NEG) Urine RBC 0 /HPF (0-2) Urine WBC 0 /HPF (0-4) Urine Bacteria 0 /HPF (0-FEW) Assessment/Plan 1. Headache, numbness in lips and near-syncope. Blood pressure borderline low and could've caused her dizziness and near syncope. Agree with holding antihypertensives and recommend generous oral fluid intake. Her numbness in lips and headache however could be TIA. Suggest neurology consultation. 2. Coronary artery disease s/p CABG twice, clinically stable and chest pain- free. Continue current secondary prevention measures. We will obtain records of recent cardiac workup from [facility] cardiology. 3. s/p MVR, clinically stable. 4. Chronic systolic heart failure, ischemic cardiomyopathy s/p AICD implantation. Patient denied any recent ICD firing episodes. Her cardiomyopathy is clinically well compensated. We will review records from primary clinical team manager office regarding any recent device checks. 5. Hyperlipidemia: Statins therapy 6. Paroxysmal atrial fibrillation: Presently AV paced. Continue sotalol for antiarrhythmic therapy and warfarin for stroke prophylaxis. Thank you for your consultation ZACARIAS ROBLES MD Mar 20, 2019 17:17
[2019-03-20] MEDS ORDERED: LEVO50TA5 PO (17:39)
[2019-03-20] MEDS ORDERED: SOTA120T27 PO (17:39)
[2019-03-20 18:30] VITALS: BP 128/82
[2019-03-20] MEDS ORDERED: FLU VAX QS 2019-20 (36MOS+)/PF 0.5 ML SYRINGE. VAX IM ONE (18:45)
[2019-03-20] MEDS ORDERED: PNEUMOC CONJ VACC 23-VALENT 0.5 ML VIAL. VAX IM ONE (18:45)
[2019-03-20] MEDS ORDERED: IOHEXOL 350 MG/ML 100 ML VIAL. IV ONE (19:30)
[2019-03-20 20:03] VITALS: BP 127/80
[2019-03-20] MEDS: SOTALOL 80 MG TABLET. PO SCH (21:00)
--- NOTE | 2019-03-20 22:11 | RAD ---
Exam: CTA head and neck INDICATION: Syncope, abnormal head CT TECHNIQUE: Sequential axial images through the head and neck obtained following the administration of 75 mL of Omni 350 IV contrast. Sagittal and coronal reformatted images were reconstructed from the axial data and reviewed. 3-D reformatted images were reconstructed from the axial data and reviewed. Comparisons: CT head without contrast 03/20/2019 FINDINGS: CTA neck: Visualized portions of the thoracic aorta are normal. Right common carotid artery is patent without evidence of stenosis, occlusion or aneurysm. Normal calcified atherosclerotic plaque at the origin of the right internal carotid artery without significant stenosis. Otherwise, cervical segment of the right internal carotid artery is patent without evidence of stenosis, occlusion or aneurysm. Left common carotid artery is patent. There is mild calcified atherosclerotic plaque at the origin of the left internal carotid artery without significant stenosis. Otherwise, cervical segment of the left internal carotid artery is patent without evidence of stenosis, occlusion or aneurysm. Right vertebral artery is patent without evidence of stenosis, occlusion or aneurysm. Left vertebral artery is patent without evidence of stenosis, occlusion or aneurysm. Cervical soft tissues are unremarkable. CTA HEAD: Mild calcified plaque at the cavernous segment of the right internal carotid artery that significant stenosis. Right MCA is patent. Right ARIAS is patent. Mild calcified plaque at the cavernous segment of the left internal carotid artery without significant stenosis. Left MCA is patent. Left ARIAS is patent. Basilar artery is patent without evidence of stenosis, occlusion or aneurysm. Major branch vessels arising off of the basilar artery are patent proximally. procedures tech are patent bilaterally. IMPRESSION: 1. Mild plaque at the origin of the internal carotid arteries bilaterally without significant stenosis. 2. Mild calcified plaque at the cavernous segments of the internal carotid arteries without significant stenosis. 3. No large vessel occlusion. Exposure: One or more of the following in the visualized dose reduction techniques were utilized for this examination: 1. Automated exposure control 2. Adjustment of the MA and/or KV according to patient size 3. Use of iterative of reconstructive technique Electronically signed by: Ashwin Randhawa MD (03/20/2019 10:08 PM) [facility]
[2019-03-20 22:57] VITALS: BP 98/65
[2019-03-21] MEDS ORDERED: CALCIUM CARBONATE 500 MG TAB.CHEW PO PRN
[2019-03-21 06:13] VITALS: BP 131/85
[2019-03-21 07:40] VITALS: BP 131/85
[2019-03-21] MEDS: SOTALOL 80 MG TABLET. PO SCH (07:40)
[2019-03-21] MEDS ORDERED: PNEUMOC CONJ VACC 23-VALENT 0.5 ML VIAL. VAX IM ONE (09:00)
[2019-03-21] MEDS ORDERED: FLU VAX QS 2019-20 (36MOS+)/PF 0.5 ML SYRINGE. VAX IM ONE (09:00)
[2019-03-21] MEDS ORDERED: CALC200T23 PO (09:48)
[2019-03-21] MEDS ORDERED: ACET500T68 PO (09:48)
--- NOTE | 2019-03-26 03:37 | CONS ---
DATE OF CONSULTATION: 03/21/2019 REFERRING PHYSICIAN: Dr. Kruse. REASON FOR CONSULTATION: Rule out TIA versus stroke. HISTORY OF PRESENT ILLNESS: This is a 68-year-old right-handed female who was admitted to Emergency Room on account of feeling dizzy and going to pass out. The patient also complains of intermittent numbness of the lips of 3 days duration. The symptoms lasted approximately 5 minutes. On arriving to Emergency Room, she also complains of global headaches. She denies nausea, vomiting, chest pain, shortness of breath or palpitations. According to the patient, Tylenol did help her headaches. She denies visual disturbances, dysarthria, dysphagia, weakness or paresthesia. Initial nonenhanced head CT scan revealed tiny punctuate 1 mm hyperdensity adjacent to the anterior falx, may represent calcifications and less likely bleed. The patient was admitted for further evaluation. PAST MEDICAL HISTORY: Significant for coronary artery disease, hypertension, congestive heart failure, pneumonia, hypothyroidism, anemia, clotting disorder. PAST SURGICAL HISTORY: Significant for pacemaker placement, coronary artery bypass graft, hysterectomy, valve replacement. FAMILY HISTORY: Father had stroke and hypertension. Mother had lung disease. SOCIAL HISTORY: The patient denies smoking, alcohol drinking, or illicit drug use. ALLERGIES: ASPIRIN, FISH OIL, LISINOPRIL AND PRAVASTATIN. CURRENT HOME MEDICATIONS: Tylenol, amlodipine 5 mg daily, warfarin 1 mg 1-2 tablets daily, omeprazole 40 mg daily, losartan 12.5 mg daily, calcium and vitamin D3. REVIEW OF SYSTEMS: A 10-point review of system was performed as mentioned above in history of present illness. PHYSICAL EXAMINATION: GENERAL: Well-developed, well-nourished female, not in acute distress. VITAL SIGNS: Blood pressure 131/85, respiratory rate 20, pulse is 71, oxygen saturation 96% on room air, and temperature 97.5. HEENT: Normocephalic, atraumatic, otherwise unremarkable. NECK: Supple. Negative for carotid bruit, lymphadenopathy or thyromegaly. LUNGS: Clear to A and P. CARDIOVASCULAR: Regular rate and rhythm, normal S1, S2. There is no S3, S4 or murmurs. ABDOMEN: Soft. Bowel sounds positive. EXTREMITIES: Negative for cyanosis, clubbing or pitting edema. NEUROLOGICAL: Mental status: The patient is alert and oriented x 3. The speech is fluent. There is no language dysfunction. Memory, judgment, and abstract thinking are normal. The patient denies hallucination or delusion. Cranial nerves: Visual singh are full. The pupils are reactive to light and accommodation. The extraocular movements are intact. There is no nystagmus. There is no facial motor or sensory deficit. Hearing is intact bilaterally. The palate is elevated symmetrically. Sternocleidomastoid muscles are powerful bilaterally. The patient shrugs her shoulders symmetrically, protrudes her tongue in the midline without fasciculation or atrophy. Motor: No focal muscle bulk was seen. The tone is normal. The strength is 4/5 throughout. Sensory: Revealed normal pinprick, light touch, vibratory and position senses. Deep tendon reflexes: Symmetric and hypoactive with absent Achilles responses. Gait and coordination are normal. DIAGNOSTIC DATA: Chest x-ray revealed no acute cardiopulmonary process. Moderate hiatal hernia with atelectasis. Head and neck CT angio revealed mild plaquing at the origin of the internal carotid arteries bilaterally, otherwise unremarkable. CT angio of the head revealed no significant large vessel occlusion. LABORATORY DATA: CBC revealed white blood cells of 6.6 thousand, hemoglobin 13, hematocrit 39.8 and platelet count 223,000. Chemistry revealed sodium of 141, potassium 3.9, chloride 103, CO2 of 30, BUN 21, creatinine 1.1 and glucose 93. Magnesium is 2.1. Liver enzymes are normal. Troponin level is normal, but NPB is high at 822. Urinalysis is negative for urinary tract infections. IMPRESSION: 1. Possible transient ischemic attack -- resolved without any resulting neurological residuals. 2. Multiple medical problems include coronary artery disease, hypothyroidism, hypertension and status post pacemaker placement, valve replacement and coronary artery bypass graft. RECOMMENDATIONS: Continue with current management and home medications. M Luan MORGAN MD DR: MURRAY/drake JOB#: [id number] / [id number]
== END 2019-03-21 10:10 | disposition home or self-care (01) ==
LOC: ER 14:00 → INTOOBSV 15:30 → 1 SOUTH 15:30 → ER 16:08
PROVIDERS: ADMIT Family Medicine; ATTEND Family Medicine
DX: R55 Syncope and collapse (principal); K44.9 Diaphragmatic hernia without obstruction or gangrene; I25.5 Ischemic cardiomyopathy; H53.8 Other visual disturbances; R53.1 Weakness; I25.10 Atherosclerotic heart disease of native coronary artery without angina pectoris; E03.9 Hypothyroidism, unspecified; E78.5 Hyperlipidemia, unspecified; I11.0 Hypertensive heart disease with heart failure; I48.0 Paroxysmal atrial fibrillation; I50.22 Chronic systolic (congestive) heart failure; Z95.3 Presence of xenogenic heart valve; Z95.1 Presence of aortocoronary bypass graft; Z95.810 Presence of automatic (implantable) cardiac defibrillator; Z90.710 Acquired absence of both cervix and uterus; Z82.3 Family history of stroke; Z86.73 Personal history of transient ischemic attack (TIA), and cerebral infarction without residual deficits; Z82.49 Family history of ischemic heart disease and other diseases of the circulatory system; Z79.01 Long term (current) use of anticoagulants; Z23 Encounter for immunization
CPT/HCPCS: 36415; 70450; 70496; 70498; 71045; 80053; 81001; 83735; 83880; 84484; 85025; 85610; 85730; 90686; 90732; 93005; 99284; G0008; G0009; G0378; Q9967; 90471; 90472; G0379

== ENCOUNTER → 2019-04-26 | Outpatient (CLI) | payer MEDICARE ==
[~2019-04-26] MED LIST changes: +ACET500T68 PO; +CALC200T23 PO; +OMEP40CA45 PO; +SOTA120T27 PO; +WARF1TAB69 PO
[2019-04-26 09:05] LABS: ALBUMIN 3.3 g/dL (3.4-5.0); ALBUMIN/GLOBULIN RATIO 0.8 (1.0-1.7); CALCIUM 8.9 mg/dL (8.5-10.1); GFR 55.1; POTASSIUM 4.5 mmol/L (3.5-5.1); TOTAL BILIRUBIN 0.3 mg/dL (0.2-1.0); TOTAL PROTEIN 7.5 g/dL (6.4-8.2)
== END | disposition home or self-care (01) ==
LOC: LAB 08:18
PROVIDERS: ATTEND Nurse Practitioner
DX: E78.5 Hyperlipidemia, unspecified (principal)
CPT/HCPCS: 36415; 80053; 80061

== ENCOUNTER 2019-08-03 15:16 | Emergency (ER) | payer MEDICARE ==
[~2019-08-03] VITALS: Ht 154.9 cm; Wt 92.1 kg
[2019-08-03 15:31] VITALS: BP 112/76
[2019-08-03] MEDS ORDERED: MORPHINE SULFATE 4 MG/ML DISP.SYRIN. IM ONE (15:45)
--- NOTE | 2019-08-03 15:59 | RAD ---
Right foot 3 views, right ankle 3 views. HISTORY: Trauma Right foot 3 views were taken of the right foot. There is not evidence of an acute fracture or osseous abnormality. Right ankle 3 views were taken of the right ankle. There is mild soft tissue swelling. There is not evidence of an acute fracture or osseous abnormality. There is mild soft tissue swelling at the anterior ankle. IMPRESSION: 1. No acute fracture noted in the right foot. 2. No acute fracture noted at the right ankle. Electronically signed by: Samuel Peña MD (08/03/2019 3:56 PM) [id number]
[2019-08-03] MEDS ORDERED: HYDR-3165 PO (16:28)
--- NOTE | 2019-08-03 16:32 | PHYS DOC ---
Past History Past Medical History: Heart Disease, Hypertension, Other Past Surgical History: Coronary Bypass Surgery, Hysterectomy, Pacemaker, Other Additional Past Surgical Histo: valve replacement, cardiac tumor resection Smoking: Non-smoker Alcohol Use: None Drug Use: None Adult General Chief Complaint Chief Complaint: ANKLE PROBLEM HPI HPI Patient is a 69-year-old female presenting with ankle pain. Apparently she was Sitting on her feet they were working on cleaning the house she twisted the wrong way she had severe pain in the right ankle most of the lateral aspect no knee pain no head injury no numbness no tingling no other pain the symptoms are moderate she does take warfarin for a valve replacement her last INR was 2.42 days ago. Review of Systems Review of Systems Constitutional: Denies fever or chills [] Eyes: Denies change in visual acuity, redness, or eye pain [] HENT: Denies nasal congestion or sore throat [] Musculoskeletal: All other systems were reviewed and found to be within normal limits, except as documented in this note. Current Medications Current Medications Current Medications Medications (Trade) Dose Ordered Sig/Jes Start Time Stop Time Status Last Admin Dose Admin Morphine Sulfate (Morphine 4mg Syringe) 4 mg 1X ONCE 08/03/19 15:45 08/03/19 15:46 DC 08/03/19 15:44 4 MG Allergies Allergies Allergies Coded Allergies Type Severity Reaction Last Updated Verified aspirin Allergy Intermediate 03/20/19 Yes fish oil Allergy Intermediate 05/06/16 Yes lisinopril Allergy Intermediate 05/06/16 Yes pravastatin Allergy Intermediate 05/06/16 Yes Physical Exam Physical Exam Constitutional: Well developed, well nourished, no acute distress, non-toxic appearance. [] HENT: Normocephalic, atraumatic, bilateral external ears normal, oropharynx moist, no oral exudates, nose normal. [] Eyes: PERRLA, EOMI, conjunctiva normal, no discharge. [] Neck: Normal range of motion, no tenderness, supple, no stridor. [] Skin: Warm, dry, no erythema, no rash. [] Back: No tenderness, no CVA tenderness. [] Extremities: Significant tenderness to palpation of the right ankle there is moderate swelling at the ATFL there is lateral malleolar tenderness. No real tenderness at the fifth metatarsal. Pedal pulses are intact Neurologic: Alert and oriented X 3, normal motor function, normal sensory function, no focal deficits noted. [] Psychologic: Affect normal, judgement normal, mood normal. [] Current Patient Data Vital Signs Vital Signs Date Time Temp Pulse Resp B/P (MAP) Pulse Ox O2 Delivery O2 Flow Rate FiO2 08/03/19 15:44 18 Room Air 08/03/19 15:31 98.2 72 112/76 (88) 99 EKG EKG [] Radiology/Procedures Radiology/Procedures [] Impressions: IMPRESSION: 1. No acute fracture noted in the right foot. 2. No acute fracture noted at the right ankle. Electronically signed by: Samuel Nair MD (08/03/2019 3:56 PM) [id number] DICTATED AND SIGNED BY: SAMUEL NAIR MD DATE: 08/03/19 1556 CC: DURGA LANCASTER MD; LESLIE FLORES MD ~ Course & Med Decision Making Course & Med Decision Making Pertinent Labs and Imaging studies reviewed. (See chart for details) 69 yo female presenting with chief complaint of ankle injury fairly minor mechanism ankle sprain probable x-ray negative patient was provided with an Eleazar wrap as well as some pain medication due to severity of pain recommended ice elevate limited weightbearing until tolerated and return precautions discussed Dragon Disclaimer Dragon Disclaimer This electronic medical record was generated, in whole or in part, using a voice recognition dictation system. Departure Departure: Impression: Primary Impression: Ankle sprain Disposition: 01 HOME, SELF-CARE Condition: STABLE Patient Instructions: Ankle Sprain Scripts Hydrocodone Bit/Acetaminophen (NORCO 5-325 TABLET) 1 Each Tablet 1-2 TAB PO Q4-6HRS PRN for PAIN, #12 TAB Prov: LESLIE FLORES MD 08/03/19 LESLIE FLORES MD Aug 03, 2019 16:32
== END 2019-08-03 16:35 | disposition home or self-care (01) ==
LOC: ER 15:16
DX: S93.401A Sprain of unspecified ligament of right ankle, initial encounter (principal); I10 Essential (primary) hypertension; Z90.710 Acquired absence of both cervix and uterus; Z95.0 Presence of cardiac pacemaker; Z88.6 Allergy status to analgesic agent; Z88.8 Allergy status to other drugs, medicaments and biological substances; X50.1XXA Overexertion from prolonged static or awkward postures, initial encounter; Y93.89 Activity, other specified; Y92.89 Other specified places as the place of occurrence of the external cause; Y99.8 Other external cause status
CPT/HCPCS: 73610; 73630; 96372; 99284; J2270